=== PATIENT | male | born 1995 | race Caucasian/White ===

== ENCOUNTER 2017-09-08 12:32 | Emergency (ER) | payer OTHER ==
[~2017-09-08] VITALS: Ht 170.2 cm; Wt 39.9 kg
[2017-09-08 12:36] VITALS: BP 111/84
--- NOTE | 2017-09-08 12:58 | NUR ---
PATIENT PRESENTS TO ED WITH PT'S SHREDDER PICKER OF NEW FACILITY OF 2 DAYS AGO---WATERY STOOLS 1 EPISODE AND AGAIN THIS AM----ALSO FEVER ALTHOUGH CLEAN DIAPER AT THIS TIME AND AFEBRILE OF NOW DENIES N/V; SKIN IS PINK/WARM/DRY; AAOX4 WITH EVEN AND STEADY GAIT; LUNGS CLEAR BL; HR EVEN AND REGULAR; SHREDDER PICKER DENIES ANY CP, SOB, OR COUGH AT THIS TIME; PATIENT STATES PAIN OF 0/10 AT THIS TIME; VSS; PATIENT POSITIONED FOR COMFORT; HOB ELEVATED; BEDRAILS UP X2; BED DOWN. ER MD MADE AWARE OF PT STATUS.
[2017-09-08] MEDS ORDERED: ALBUTEROL SULFATE/IPRATROPIU 3 ML SOL IH ONE (13:35)
--- NOTE | 2017-09-08 14:02 | NUR ---
14FR STRIAGHT CATH INSERTED TO OBTAIN URINE SAMPLE STERILE SPECIMEN AND REMOVED IMMEDIATELY AFTER---- NOTED PT WITH SMALL AMOUNT SOFT BROWN STOOL IN DIAPER CLEANED WITH SOAPY WATER AND WASH CLOTHS
[2017-09-08] MEDS ORDERED: LACTULOSE 20 GM/30 ML UDC PO ONE (14:20)
[2017-09-08 14:24] LABS: APPEARANCE,URINE CLEAR (CLEAR); BILIRUBIN,URINE NEGATIVE (NEGATIVE); BLOOD, URINE NEGATIVE (NEGATIVE); COLOR,URINE YELLOW (YELLOW); LEUKOCYTE ESTERASE ,URINE NEGATIVE (NEGATIVE); NITRITE, URINE NEGATIVE (NEGATIVE); PH,URINE 6.5 (5.0-9.0); UGLUCOSE NEGATIVE (NEGATIVE)
--- NOTE | 2017-09-08 15:14 | NUR ---
Patient discharged with v/s stable. Written and verbal after care instructions given and explained. Patient alert, oriented and verbalized understanding of instructions. Wheel Chair Assisted with to car. All questions addressed prior to discharge. ID band removed. Patient advised to follow up with PMD. Rx of SENOKOT/ MAGENSIUM CITRATE LOW SODIUM given. Patient educated on indication of medication including possible reaction and side effects. Opportunity to ask questions provided and answered.
[2017-09-08 15:15] VITALS: BP 104/65
== END 2017-09-08 15:14 | disposition home or self-care (01) ==
LOC: MED 12:32
DX: R10.9 Unspecified abdominal pain (principal); R50.9 Fever, unspecified
CPT/HCPCS: 71045; 74018; 99285; C1758; Q0092

== ENCOUNTER 2017-09-29 20:28 | Inpatient (IN) | payer OTHER ==
[~2017-09-29] VITALS: Ht 162.6 cm; Wt 54.0 kg
--- NOTE | 2017-09-29 20:28 | NUR ---
PT ELADIO BLS TO ER BED 05
[2017-09-29 20:30] VITALS: BP 105/66
--- NOTE | 2017-09-29 20:30 | NUR ---
PATIENT IS A 22 Y/O MALE BIB BLS WHO PRESENTS TO THE ED C/O DIARRHEA. PER CARE PROFESSIONALS, PT HAD FEVER IN THE AM AND X5 EPISODES OF DIARRHEA. PT IN NO VISIBLE SIGNS OF PAIN. PT DOES NOT APPEAR TO BE IN SIGNS OF CP, SOB, CARE PROFESSIONALS REPORTS DIARRHEA DENIES NAUSEA/VOMITING. PT NONVERBAL, RR EVEN/UNLABORED. PT REPOSITIONED FOR COMFORT, SZ PRECAUTIONS, MONITOR ON, BED IN LOWEST POSITION. ER MD DR. FLANAGAN NOTIFIED. WILL CONTINUE TO MONITOR.
[2017-09-29] MEDS ORDERED: NACL 0.9% 500 ML IV ONE (20:40)
[2017-09-29] MEDS ORDERED: NACL 0.9% 500 ML IV SCH (20:40)
--- NOTE | 2017-09-29 21:30 | NUR ---
# 14 FR STRAIGHT catheter utilizing sterile technique. Immediate return of 30 ml CLEAR urine noted. Pt tolerated procedure WELL.
[2017-09-29 21:34] LABS: APPEARANCE,URINE CLEAR (CLEAR); BILIRUBIN,URINE NEGATIVE (NEGATIVE); BLOOD, URINE NEGATIVE (NEGATIVE); COLOR,URINE YELLOW (YELLOW); LEUKOCYTE ESTERASE ,URINE NEGATIVE (NEGATIVE); NITRITE, URINE NEGATIVE (NEGATIVE); PH,URINE 6.5 (5.0-9.0); UGLUCOSE NEGATIVE (NEGATIVE)
[2017-09-29 21:35] LABS: BASOPHILS % (AUTO) 0.5 % (0.0-2.0); EOSINOPHILS # (AUTO) 0.3 K/uL (0-0.4); EOSINOPHILS % (AUTO) 4.2 % (0.0-4.0); HEMATOCRIT 45.2 % (36-52); HEMOGLOBIN 14.8 g/dL (12.0-18.0); LYMPHOCYTES # (AUTO) 2.4 K/uL (2.0-11.5); LYMPHOCYTES % (AUTO) 34.5 % (20.5-51.1); MEAN CORPUSCULAR HEMOGLOBIN 29 pg (27-31); MEAN CORPUSCULAR HGB CONC 33 g/dL (33-37); MEAN CORPUSCULAR VOLUME 88.6 fL (80-94); MONOCYTES # (AUTO) 0.8 K/uL (0.8-1.0); MONOCYTES % (AUTO) 11.2 % (1.7-9.3); NEUTROPHILS # (AUTO) 3.4 K/uL (1.8-7.7); NEUTROPHILS % (AUTO) 49.6 % (42.2-75.2); PLATELET COUNT (AUTO) 215 K/uL (140-450); RED BLOOD CELL COUNT(AUTO) 5.11 MIL/uL (4.20-6.10); RED CELL DISTRIBUTION WIDTH 13.7 % (11.6-13.7); WHITE BLOOD COUNT (AUTO) 6.9 K/uL (4.5-11.0)
[2017-09-29 21:47] LABS: ANION GAP 14.3 (8-16); CARBON DIOXIDE 25.6 mmol/L (21-32); CREATININE 0.7 mg/dL (0.7-1.3); POTASSIUM 3.9 mmol/L (3.5-5.1)
[2017-09-29 21:52] LABS: ALBUMIN 3.4 g/dL (3.4-5.0); TOTAL BILIRUBIN 0.3 mg/dL (0.0-1.0)
[2017-09-29 21:57] LABS: PROTHROMBIN TIME 11.3 secs (10.8-13.4)
--- NOTE | 2017-09-29 22:05 | NUR ---
PATIENT TAKEN TO CT VIA ORENRLOU WITH TECH.
--- NOTE | 2017-09-29 22:15 | NUR ---
PATIENT RESTING AT THIS TIME. NO SIGNS OF DISTRESS.
[2017-09-29] MEDS ORDERED: MAGN400S60 PO (22:50)
[2017-09-29] MEDS ORDERED: ACET-2619 PO (22:50)
[2017-09-29] MEDS ORDERED: IBUP-2213 PO (22:50)
[2017-09-29] MEDS ORDERED: DOCU-299 PO (22:50)
[2017-09-29] MEDS ORDERED: MIRABULK PO (22:50)
[2017-09-30] MEDS ORDERED: ONDANSETRON 4 MG/2 ML VIAL IVP PRN (00:10)
[2017-09-30] MEDS ORDERED: MORPHINE SULFATE 4 MG/ML SYR IVP PRN (00:10)
[2017-09-30] MEDS ORDERED: ACETAMINOPHEN 325 MG TAB PO PRN (00:25)
--- NOTE | 2017-09-30 00:58 | NUR ---
Patient will be admitted to care of DR. MORENO. Admited to M/S. Will go to room 110A. Belongings list completed. Report to YURY GORDILLO.
[2017-09-30 01:05] VITALS: BP 85/56
--- NOTE | 2017-09-30 01:05 | NUR ---
ADMITTED A 22 YEAR OLD MALE TO 110A WITH DX OF BOWEL OBSTRUCTION, AWAKE ALERT BUT NON-VERBAL, PT IS CEREBRAL PALSY. APHASICABLE TO HEAR AND RESPOND TO VERBAL STIMULI PER ORTHOPHOTOGRAPHY TECHNICIAN. NO RESPIRATORY DISTRESS, O2 SAT 96% BP IS LOW BUT WILL CONTINUE TO MONITOR.
[2017-09-30] MEDS: DEXT 5% / NACL 0.45% 1,000 ML IV SCH ×4 (02:23→22:00)
--- NOTE | 2017-09-30 04:00 | NUR ---
V/S TAKEN BP 97/68 NO DISTRESS OR SEIZURE NOTED.
[2017-09-30 04:09] VITALS: BP 97/47
--- NOTE | 2017-09-30 06:00 | NUR ---
SLEEPING COMFORTABLY, NO DISTRESS NOTED.
--- NOTE | 2017-09-30 06:51 | NUR ---
PATIENT HAS BEEN SCREENED AND CATEGORIZED HIGH NUTRITION RISK. PATIENT WILL BE SEEN WITHIN 1-2 DAYS OF ADMISSION. 09/30/17-10/01/[address]
--- NOTE | 2017-09-30 07:20 | NUR ---
RECEIVED REPORT FROM LEGAL DOCUMENT SPECIALIST NURSE. PATIENT LYING DOWN IN BED COMFORTABLY. NO DISTRESS NOTED. FLACC 0. RESPIRATIONS EVEN, UNLABORED, ON ROOM AIR. AAOX1, APHASIC, CALM, COOPERATIVE, SKIN COLOR APPROPRIATE TO ETHNICITY, WARM TO TOUCH. SKIN IS INTACT. B/L UE AND LE CONTRACTURES AND MUSCLE ATROPHY NOTED. IV SITE INTACT, PATENT, AND INFUSING IVF PER MD ORDERS. ABDOMEN SOFT, BOWEL SOUNDS PRESENT ON ALL QUADRANTS. REVIEWED PLAN OF CARE WITH PATIENT. UNABLE TO COMPREHEND. REINFORCEMENT NEEDED. SAFETY MEASURES IN PLACE, CALL LIGHT WITHIN REACH. WILL CONTINUE TO MONITOR.
[2017-09-30 08:00] VITALS: BP 96/64
[2017-09-30] MEDS: DOCUSATE SODIUM 100 MG GELCAP PO SCH ×2 (09:00→20:53)
--- NOTE | 2017-09-30 09:26 | NUR ---
PATIENT LYING DOWN IN BED, NO DISTRESS NOTED. DENIES ANY PAIN. SCHEDULED MEDICATION NOT GIVEN DUE TO NPO. SAFETY MEASURES IN PLACE, CALL LIGHT WITHIN REACH, FALL PREVENTIONS IN PLACE. CALL LIGHT WITHIN REACH.
[2017-09-30] MEDS ORDERED: MORPHINE SULFATE 2 MG/ML SYR IVP PRN (09:47)
--- NOTE | 2017-09-30 10:03 | NUR ---
09/30/17 RD INITIAL ASSESSMENT COMPLETED PLEASE REFER TO NUTRITION ASSESSMENT UNDER CARE ACTIVITY FOR ESTIMATED NUTRITIONAL NEEDS. RD RECOMMENDATIONS: 1. CONTINUE NPO MEDICALLY APPROPRIATE. 2. IF/WHEN PT IS MEDICALLY STABLE TO BEGIN NUTRITION PER MD DISCRETION, CONSIDER CLEAR LIQUID AND ADVANCE TOLERATED. 3. IF PATIENT WILL NEED NUTRITION SUPPORT, PLEASE CONSULT RD FOR RECOMMENDATIONS. 4. RD WILL F/U 2-3 DAYS; HIGH RISK. CHACHA THAO RD
[2017-09-30] MEDS: FAMOTIDINE 20 MG/2 ML VIAL IV SCH (10:45)
[2017-09-30] MEDS: LEVOFLOXACIN 250 MG/D5 PREMIX 50 ML IV SCH (10:45)
--- NOTE | 2017-09-30 11:43 | NUR ---
PATIENT LYING DOWN IN BED, COMFORTABLY. NO DISTRESS NOTED. FLACC 0. OLD IV SITE INFILTRATED. NEW IV SITE STARTED ON RIGHT FA #22 GAUGE ON SECOND ATTEMPT. PATIENT TOLERATED WELL. SCHEDULED MEDICATIONS DUE GIVEN. SAFETY MEASURES IN PLACE, CALL LIGHT WITHIN REACH. WILL CONTINUE TO MONITOR.
[2017-09-30] MEDS: metroNIDAZOLE 500 MG/NS PREMIX 100 ML IV SCH ×2 (13:58→20:50)
--- NOTE | 2017-09-30 14:07 | NUR ---
PATIENT LYING DOWN IN BED COMFORTABLY. NO DISTRESS NOTED. FLACC 0. SCHEDULED MEDICATIONS DUE GIVEN. WILL CONTINUE TO MONITOR.
[2017-09-30 16:00] VITALS: BP 116/57
--- NOTE | 2017-09-30 17:30 | NUR ---
PATIENT LYING DOWN IN BED COMFORTABLY. NO DISTRESS NOTED. FLACC 0. CONDITION UNCHANGED. WILL CONTINUE TO MONITOR.
--- NOTE | 2017-09-30 19:27 | NUR ---
ENDORSED PLAN OF CARE TO DIE REPAIRER FORGING RN. PATIENT IS IN STABLE CONDITION.
--- NOTE | 2017-09-30 19:36 | NUR ---
RECEIVED FROM AM RN IN BED AWAKE. DX. SMALL BOWEL OBSTRUCTION. NPO WITH IVF SITE INTACT AND NO INFILTRATION TO RIGHT HAND 22. HX. OF CEREBRAL PALSY,SERVICE CLEANER SHUNT IN PLACE AND SEIZURES. SIDERAILS PADDED FOR SEIZURE PRECAUTION. CONTRACTED EXTREMITIES. APHASIC. NEEDS ANTICIPATED AND WILL BE MET.
--- NOTE | 2017-10-01 | NUR ---
AWAKE AND WATCHING TV. ENCOURAGED TO SLEEP. TOTAL CARE. NONE VERBAL. NO RESTLESSNESS. SMILING ALL THE TIME.
[2017-10-01 00:09] VITALS: BP 110/60
--- NOTE | 2017-10-01 03:13 | NUR ---
STILL AWAKE AT THIS TIME. WATCHING TV. NO RESTLESSNESS NOTED. NEEDS ANTICIPATED AND WILL BE MET.
[2017-10-01] MEDS: metroNIDAZOLE 500 MG/NS PREMIX 100 ML IV SCH ×3 (04:35→21:21)
[2017-10-01 06:34] LABS: BASOPHILS % (AUTO) 0.6 % (0.0-2.0); EOSINOPHILS # (AUTO) 0.2 K/uL (0-0.4); HEMATOCRIT 42.6 % (36-52); HEMOGLOBIN 14.1 g/dL (12.0-18.0); LYMPHOCYTES # (AUTO) 1.6 K/uL (2.0-11.5); LYMPHOCYTES % (AUTO) 28.5 % (20.5-51.1); MEAN CORPUSCULAR HEMOGLOBIN 30 pg (27-31); MEAN CORPUSCULAR HGB CONC 33 g/dL (33-37); MEAN CORPUSCULAR VOLUME 89.3 fL (80-94); MONOCYTES # (AUTO) 0.6 K/uL (0.8-1.0); MONOCYTES % (AUTO) 9.7 % (1.7-9.3); NEUTROPHILS # (AUTO) 3.3 K/uL (1.8-7.7); NEUTROPHILS % (AUTO) 57.2 % (42.2-75.2); PLATELET COUNT (AUTO) 163 K/uL (140-450); RED BLOOD CELL COUNT(AUTO) 4.78 MIL/uL (4.20-6.10); RED CELL DISTRIBUTION WIDTH 13.9 % (11.6-13.7); WHITE BLOOD COUNT (AUTO) 5.7 K/uL (4.5-11.0)
[2017-10-01 07:04] LABS: ALBUMIN 3.1 g/dL (3.4-5.0); ANION GAP 9.6 (8-16); CARBON DIOXIDE 22.9 mmol/L (21-32); CREATININE 0.6 mg/dL (0.7-1.3); MAGNESIUM 1.9 mg/dL (1.8-2.4); PHOSPHORUS 3.8 mg/dL (2.5-4.9); POTASSIUM 3.5 mmol/L (3.5-5.1); TOTAL BILIRUBIN 0.6 mg/dL (0.0-1.0)
--- NOTE | 2017-10-01 07:20 | NUR ---
RECEIVED PT FROM BRICK AND BLOCK MASON NURSE, NO SIGNS OF ACUTE DISTRESS.
--- NOTE | 2017-10-01 07:31 | NUR ---
ENDORSED TO THE NEXT RN FOR CONTINUITY OF CARE. NO UNTOWARD INCIDENT THIS SHIFT.
--- NOTE | 2017-10-01 07:32 | NUR ---
RECEIVED REPORT FROM MANUFACTURING MILLWRIGHT NURSE. PT IS RESTING IN BED, SEMI FOWLERS POSITION, PT IS AAOX1, APHASIC, WHEELCHAIR BOUND, PT HAS IV ON HIS RIGHT FA, PATENT, INTACT, FLUSHING WELL, NO S/S OF RESPIRATORY DISTRESS OR DISCOMFORT NOTED, DISCUSSED PLAN OF CARE WITH PT, PT UNABLE TO COMPREHEND, SAFETY/FALL/SEIZURE PRECAUTIONS ARE IN PLACE, CALL LIGHT IS WITHIN REACH, WILL CONTINUE TO MONITOR.
[2017-10-01 08:00] VITALS: BP 104/61
[2017-10-01] MEDS: DEXT 5% / NACL 0.45% 1,000 ML IV SCH ×3 (08:56→21:22)
[2017-10-01] MEDS: DOCUSATE SODIUM 100 MG GELCAP PO SCH ×2 (08:57→21:00)
--- NOTE | 2017-10-01 09:40 | NUR ---
PT RESTING IN BED, WAS CHANGED AND REPOSITIONED TO RIGHT SIDE, NO SIGNS OF ACUTE DISTRESS. CAREGIVER ARIANNA CALLED ASKING FOR UPDATE ON PLAN OF CARE. PLAN OF CARE EXPLAINED AND QUESTIONS ANSWERED. HAND MOLDER AND CASTER STATED SHE WILL COME TO VISIT LATER TODAY IF SHE CAN. PT IS STABLE AT THIS TIME, COMFORTABLE AND WATCHING TV.
[2017-10-01] MEDS: LEVOFLOXACIN 250 MG/D5 PREMIX 50 ML IV SCH (10:07)
[2017-10-01] MEDS: FAMOTIDINE 20 MG/2 ML VIAL IV SCH (10:07)
--- NOTE | 2017-10-01 11:20 | NUR ---
ENSURING FREQ ROUNDS FOR PT SAFETY, PT IS STABLE, WATCHING TV IN BED, CALL LIGHT WITHIN REACH.
--- NOTE | 2017-10-01 14:00 | NUR ---
IV ON RIGHT ARM D/C, CATH IN TACK. D.C DUE TO INFILTRATION. NEW IV STARTED ON UPPER RIGHT ARM, 22 GAUGE, PATIENT, AND SECURED.
--- NOTE | 2017-10-01 15:30 | NUR ---
OLDER SISTER AT BEDSIDE, PLAN OF CARE REVIEWED AND QUESTIONS ANSWERED, ASKED TO CALL JENNIFER WHEN MONSERRAT CARDOZA COMES TO VISIT. PT IN NO DISTRESS, CALL LIGHT WITHIN REACH.
[2017-10-01 16:00] VITALS: BP 103/55
--- NOTE | 2017-10-01 17:30 | NUR ---
PT RESTING IN BED, IV FLUIDS INFUSING, NO SIGNS OF DISTRESS, WILL CONTINUE FREQ ROUNDS.
--- NOTE | 2017-10-01 19:25 | NUR ---
ENDORSED PT TO DRAW OPERATOR NURSE WILL CONTINUE PLAN OF CARE, PT STABLE AT THIS TIME
--- NOTE | 2017-10-01 19:25 | NUR ---
RECEIVED FROM AM RN IN BED AWAKE AND ALERT. WATCHING TV. SMILING. NONE VERBAL. NEEDS WILL BE ANTICIPATED AND WILL BE MET. TOTAL CARE. PADDED SIDERAILS FOR SEIZURE PRECAUTIONS HX. CEREBRAL PALSY.
[2017-10-01] MEDS: POLYETHYLENE GLYCOL 17 GM/PKT PO SCH (21:00)
--- NOTE | 2017-10-01 22:30 | NUR ---
PT. STILL AWAKE . FLACC O-. KEPT COMFORTABLE. NPO . PT. NEEDS ANTICIPATED AND WILL BE MET. HX. CEREBRAL PALSY. SMILING MOST OF TIMES.
[2017-10-02 00:43] VITALS: BP 108/64
--- NOTE | 2017-10-02 00:45 | NUR ---
PT. AWAKE STILL AND WATCHING TV. TURNED TO SIDES WITH PILLOW SUPPORT TO PRESSURE AREAS. NEEDS ANTICIPATED AND MET. TOTAL CARE.
--- NOTE | 2017-10-02 02:53 | NUR ---
SLEEPING. FLACC 0-NEEDS ANTICIPATED AND WILL BE MET. TURNED TO SIDES Q 2H WITH PILLOW SUPPORT TO PRESSURE AREAS.
[2017-10-02] MEDS: metroNIDAZOLE 500 MG/NS PREMIX 100 ML IV SCH ×2 (05:37→12:45)
--- NOTE | 2017-10-02 06:49 | NUR ---
PT. AWAKE AND ALERT. LAB. CASE MANAGEMENT COORDINATOR IN HERE TO DRAW BLOOD SAMPLE. NO SOB. TOTAL CARE RT CEREBRAL PALSY HX. NEEDS ANTICIPATED AND MET. IVF SITE INTACT AND NO INFILTRATION.
[2017-10-02 07:16] LABS: BASOPHILS % (AUTO) 0.5 % (0.0-2.0); EOSINOPHILS # (AUTO) 0.3 K/uL (0-0.4); EOSINOPHILS % (AUTO) 4.4 % (0.0-4.0); HEMATOCRIT 43.2 % (36-52); HEMOGLOBIN 14.4 g/dL (12.0-18.0); LYMPHOCYTES # (AUTO) 1.2 K/uL (2.0-11.5); LYMPHOCYTES % (AUTO) 18.2 % (20.5-51.1); MEAN CORPUSCULAR HEMOGLOBIN 30 pg (27-31); MEAN CORPUSCULAR HGB CONC 33 g/dL (33-37); MEAN CORPUSCULAR VOLUME 89.2 fL (80-94); MONOCYTES # (AUTO) 0.8 K/uL (0.8-1.0); MONOCYTES % (AUTO) 12.1 % (1.7-9.3); NEUTROPHILS # (AUTO) 4.1 K/uL (1.8-7.7); NEUTROPHILS % (AUTO) 64.8 % (42.2-75.2); PLATELET COUNT (AUTO) 167 K/uL (140-450); RED BLOOD CELL COUNT(AUTO) 4.85 MIL/uL (4.20-6.10); RED CELL DISTRIBUTION WIDTH 13.9 % (11.6-13.7); WHITE BLOOD COUNT (AUTO) 6.4 K/uL (4.5-11.0)
--- NOTE | 2017-10-02 07:30 | NUR ---
RECEIVED REPORT FROM NIGHT RN AT PT BEDSIDE. PATIENT ALERT TO SELF. ABLE TO FOLLOW SIMPLE COMMANDS. APHASIC. NO S/S OF ACUTE DISTRESS NOTED. PATIENT CONTRACTED BLE, LUE. IV SITE PATENT AND INTACT.
--- NOTE | 2017-10-02 07:34 | NUR ---
PT. AWAKE. ENDORSED TO THE NEXT RN FOR CONTINUITY OF CARE. HX. CEREBRAL PALSY. NO COMPLAINTS DONE. NEEDS ANTICIPATED AND MET.TOTAL CARE.NON VERBAL.
[2017-10-02 07:57] LABS: CARBON DIOXIDE 25.9 mmol/L (21-32); CREATININE 0.7 mg/dL (0.7-1.3); POTASSIUM 3.9 mmol/L (3.5-5.1)
[2017-10-02 08:00] VITALS: BP 94/65
[2017-10-02] MEDS: DOCUSATE SODIUM 100 MG GELCAP PO SCH ×2 (09:39→22:04)
[2017-10-02] MEDS: POLYETHYLENE GLYCOL 17 GM/PKT PO SCH ×3 (09:39→22:04)
[2017-10-02] MEDS: FAMOTIDINE 20 MG/2 ML VIAL IV SCH (09:40)
[2017-10-02] MEDS: LEVOFLOXACIN 250 MG/D5 PREMIX 50 ML IV SCH (09:42)
--- NOTE | 2017-10-02 11:14 | NUR ---
PATIENT SEEN BY PATIENT'S RESIDENT CARE ASSOCIATE AT BEDSIDE. MADE AWARE OF CURRENT PLAN OF CARE REGARDING DISCHARGE PLANNING. ALL NEEDS MET. PT RESTING IN BED.
--- NOTE | 2017-10-02 12:11 | NUR ---
FAXED INITIAL REVIEW TO [facility] [phone] DAMIAN [phone]
--- NOTE | 2017-10-02 12:36 | NUR ---
PATIENT SEEN BY DR. Robby BARROSO AT PT BEDSIDE. MD SPOKE WITH PATIENT'S AUNT ON PHONE REGARDING H&P. CONTINUE WITH CURRENT PLAN OF CARE, NEW ORDERS RECEIVED FOR ADDED MEDICATIONS.
[2017-10-02] MEDS ORDERED: MINERAL OIL 135 ML ENEM RC SCH ×2 (12:45→21:00)
[2017-10-02] MEDS: DEXT 5% / NACL 0.45% 1,000 ML IV SCH (12:49)
--- NOTE | 2017-10-02 14:08 | NUR ---
FLEET ENEMA MINERAL OIL ADMINISTERED, TO FOLLOW.
[2017-10-02] MEDS ORDERED: MAGNESIUM CITRATE 300 ML BTL PO SCH (14:10)
[2017-10-02 16:00] VITALS: BP 105/71
[2017-10-02] MEDS: SENNA 8.6 MG TAB PO SCH (16:06)
--- NOTE | 2017-10-02 19:20 | NUR ---
SBAR REPORT GIVEN TO DUY AVERY AT PT BEDSIDE. NO S/S OF ACUTE DISTRESS NOTED. PATIENT CONTINUES TO BE CONSTIPATED. SECOND DOSE FLEET ENEMA ADMINISTERED ORDERED, FIRST DOSE EXPELLED WITH NO STOOL.
[2017-10-02 20:25] VITALS: BP 109/70
[2017-10-02] MEDS: LACTULOSE 20 GM/30 ML UDC PO SCH (22:04)
[2017-10-03 00:48] VITALS: BP 109/75
[2017-10-03] MEDS: DEXT 5% / NACL 0.45% 1,000 ML IV SCH ×2 (00:58→10:00)
--- NOTE | 2017-10-03 07:36 | NUR ---
Pt had 2 large loose BMS. Latter stool slightly pasty. Spoke witj pt Aunt Mahnaz and update on patient status. IVF infusing and patent. Safety precautions in use. No s/s of distress noted. Handoff given to oncoming DUY Randle and Polina.
--- NOTE | 2017-10-03 07:38 | NUR ---
RECEIVED REPORT FROM PHP DEVELOPER NURSE. PATIENT IS IN STABLE CONDITION. LUNG CTA IN ALL WHITTAKER. HEART RATE REGULAR, S1 AND S2 NOTED. BOWEL SOUNDS PRESENT IN ALL QUADRANTS. NO DISTRESS NOTED. ALL SAFETY MEASURES IN PLACE, CALL LIGHT WITHIN REACH. WILL CONTINUE TO MONITOR.
[2017-10-03 08:00] VITALS: BP 91/51
[2017-10-03] MEDS: DOCUSATE SODIUM 100 MG GELCAP PO SCH (09:48)
[2017-10-03] MEDS: SENNA 8.6 MG TAB PO SCH ×2 (09:49→13:34)
[2017-10-03] MEDS: LACTULOSE 20 GM/30 ML UDC PO SCH (09:49)
[2017-10-03] MEDS: POLYETHYLENE GLYCOL 17 GM/PKT PO SCH ×2 (09:51→13:33)
[2017-10-03] MEDS ORDERED: LACT10SO11 PO (09:53)
[2017-10-03] MEDS ORDERED: SENN-89 PO (09:53)
[2017-10-03] MEDS: FAMOTIDINE 20 MG/2 ML VIAL IV SCH (10:07)
--- NOTE | 2017-10-03 10:33 | NUR ---
PATIENT RESTING IN BED, AROUSABLE BY VOICE. RIGHT UPPER ARM IV REMOVED WITH MINIMAL BLOOD LOSS AND LUMEN COMPLETELY INTACT. NO SIGNS AND SYMPTOMS OF DISTRESS. WILL CONTINUE TO MONITOR.
--- NOTE | 2017-10-03 12:10 | NUR ---
PATIENT RESTING IN BED, WATCHING TV. NO SIGNS AND SYMPTOMS OF DISTRESS. ALL SAFETY MEASURES IN PLACE, CALL LIGHT WITHIN REACH. WILL CONTINUE TO MONITOR.
--- NOTE | 2017-10-03 13:00 | NUR ---
ASSISTED PATIENT WITH LUNCH FEEDING. PATIENT TOLERATED REGULAR DIET WELL. NO S/S OF DISTRESS NOTED
--- NOTE | 2017-10-03 14:15 | NUR ---
PATIENT HAD A BM. PERINEAL CARE GIVEN
--- NOTE | 2017-10-03 14:20 | NUR ---
PATIENT LYING IN BED WITH CAREGIVER AT BEDSIDE. PATIENT IS IN STABLE CONDITION. DISCHARGE INSTRUCTIONS AND FOLLOW UP WITH PRIMARY CARE PHYSICIAN INSTRUCTIONS COMMUNICATED WITH PATIENT AND CAREGIVER. NEW PRESCRIPTIONS GIVEN TO CAREGIVER. CAREGIVER VERBALIZED UNDERSTANDING OF ALL DISCHARGE INSTRUCTIONS. IV REMOVED WITH MINIMAL BLOOD LOSS AND LUMEN COMPLETELY INTACT. PATIENT IS NOT IN ANY DISTRESS. PATIENT AND CAREGIVER LEFT WITH ALL OF PATIENT'S PERSONAL BELONGINGS.
--- NOTE | 2017-10-03 14:36 | NUR ---
CONCURRENT REVIEW FAXED TO [facility] [phone]
== END 2017-10-03 14:20 | disposition home or self-care (01) | DRG 254 ==
LOC: MED 20:28 → MTU 09-30 00:06
PROVIDERS: ADMIT Hospitalist; ATTEND Hospitalist
DX: K62.89 Other specified diseases of anus and rectum (principal); K56.7 Ileus, unspecified; K59.09 Other constipation; G40.909 Epilepsy, unspecified, not intractable, without status epilepticus; G80.9 Cerebral palsy, unspecified; F79 Unspecified intellectual disabilities; K46.9 Unspecified abdominal hernia without obstruction or gangrene
CPT/HCPCS: 36415; 71045; 74018; 80048; 80053; 81003; 83605; 83735; 84100; 85025; 85610; 85730; 87040; 87081; 87086; 93005; 96360; 96361; 99285; C1758; J1956; J3490; J7030; Q0092

== ENCOUNTER 2019-10-17 11:39 | Inpatient (IN) | payer MEDICAID, SELFPAY ==
[~2019-10-17] VITALS: Ht 154.9 cm; Wt 56.7 kg
[~2019-10-17 11:39] MED LIST: ACET-2619 PO; DOCU-299 PO; IBUP-2213 PO; LACT10SO11 PO; MAGN400S60 PO; MIRABULK PO; SENN-74 PO
[2019-10-17 11:46] VITALS: BP 111/66
--- NOTE | 2019-10-17 11:50 | NUR ---
PT BIB EPITAXIAL REACTOR OPERATOR FROM [facility] C/O FEVER 100.5 X YERTERDAY. TYLENOL WAS GIVEN AROUND 6:30 AM THIS MORNING BY CAREGIVER. PER CAREGIVER, PT HAS BEEN MORE DROWSY THAN USUAL BUT DENIES HE HAS ANY FEVER, CP, SOB, COUGH, N/V/D AT THIS TIME; PATIENT'S PAIN IS 0/10 ON FLACC SCALE AT THIS TIME; VSS; DISTENDED ABDOMEN BUT NO TENDERNESS OR REBOUND TENDERNESS ON PALPATION. PATIENT POSITIONED FOR COMFORT; HOB ELEVATED; BEDRAILS UP X2; BED DOWN. ER MD MADE AWARE OF PT STATUS.
--- NOTE | 2019-10-17 12:50 | NUR ---
COVID SWAB OBTAINED AT BEDSIDE AND SENT TO THE LAB.
[2019-10-17 12:51] LABS: BASOPHILS % (AUTO) 0.1 % (0.0-2.0); HEMATOCRIT 47.1 % (36-52); HEMOGLOBIN 15.8 g/dL (12.0-18.0); LYMPHOCYTES # (AUTO) 0.6 K/uL (2.0-11.5); LYMPHOCYTES % (AUTO) 14.4 % (20.5-51.1); MEAN CORPUSCULAR HEMOGLOBIN 30 pg (27-31); MEAN CORPUSCULAR HGB CONC 34 g/dL (33-37); MONOCYTES # (AUTO) 0.6 K/uL (0.8-1.0); MONOCYTES % (AUTO) 13.9 % (1.7-9.3); NEUTROPHILS % (AUTO) 70.6 % (42.2-75.2); PLATELET COUNT (AUTO) 141 K/uL (140-450); RED BLOOD CELL COUNT(AUTO) 5.23 MIL/uL (4.20-6.10); RED CELL DISTRIBUTION WIDTH 12.8 % (11.6-13.7); WHITE BLOOD COUNT (AUTO) 4.3 K/uL (4.8-10.8)
[2019-10-17 12:52] LABS: ALBUMIN 3.6 g/dL (3.4-5.0); ANION GAP 16.1 (8-16); CARBON DIOXIDE 25.5 mmol/L (21-32); CREATININE 0.8 mg/dL (0.6-1.3); POTASSIUM 3.6 mmol/L (3.5-5.1); TOTAL BILIRUBIN 0.3 mg/dL (0.0-1.0)
--- NOTE | 2019-10-17 13:08 | NUR ---
PT HAS BEEN TAKEN TO CT SCAN BY PO.
[2019-10-17 13:29] LABS: APPEARANCE,URINE CLEAR (CLEAR); BILIRUBIN,URINE NEGATIVE (NEGATIVE); BLOOD, URINE NEGATIVE (NEGATIVE); COLOR,URINE YELLOW (YELLOW); LEUKOCYTE ESTERASE ,URINE NEGATIVE (NEGATIVE); NITRITE, URINE NEGATIVE (NEGATIVE); UGLUCOSE NEGATIVE (NEGATIVE)
--- NOTE | 2019-10-17 14:00 | NUR ---
PT IS RESTING IN THE BED. CAREGIVER IS AT BEDSIDE.
[2019-10-17] MEDS ORDERED: NACL 0.9% 1,000 ML IV ONE (14:30)
[2019-10-17] MEDS ORDERED: ACETAMINOPHEN 325 MG TAB PO PRN (14:30)
[2019-10-17] MEDS ORDERED: DOCUSATE SODIUM 100 MG GELCAP PO PRN (14:30)
[2019-10-17] MEDS ORDERED: ONDANSETRON 4 MG/2 ML VIAL IM/IVP PRN (14:30)
[2019-10-17] MEDS ORDERED: HYDROcodone/APAP 7.5/325 MG 1 TAB PO PRN (14:30)
[2019-10-17] MEDS ORDERED: LACT10SO1 PO (14:33)
[2019-10-17] MEDS ORDERED: BACI1OIN20 TP (14:37)
[2019-10-17] MEDS ORDERED: [UNRECOGNIZED DRUG - CODE] PO (14:37)
[2019-10-17] MEDS ORDERED: MAGN400S60 PO (14:37)
[2019-10-17] MEDS ORDERED: cefTRIAXone 1,000 MG VIAL ONE (14:39)
--- NOTE | 2019-10-17 15:00 | NUR ---
Patient will be admitted to care of FEVER, R/O COVID. Admited to MED-SURG. Will go to room 113. Belongings list completed. Report to DUY PEARL.
[2019-10-17 15:05] LABS: BARBITURATE, URINE NEGATIVE ng/ml (NEG <=200); BENZODIAZEPINE, URINE NEGATIVE ng/mL (NEG <=200); CANNABINOID, URINE NEGATIVE ng/mL (NEG <=50); COCAINE, URINE NEGATIVE ng/mL (NEG <=300); OPIATE, URINE NEGATIVE ng/mL (NEG <=2000); PHENCYCLIDINE SCREEN,URINE NEGATIVE ng/mL (NEG <=25)
--- NOTE | 2019-10-17 15:15 | NUR ---
RECEIVED PATIENT FROM ED NURSE FOR CONTINUITY OF CARE. INITIAL ASSESSMENT: PATIENT IS AWAKE. HX OF CEREBRAL PALSY, AV SHUNT, SEIZURE. RESPIRATIONS EVEN AND UNLABORED, ROOM AIR. CLEAR LUNGS SOUNDS THROUGHOUT. VISIBLE CHEST RISE AND FALL NOTED. ABDOMEN SOFT AND NONTENDER. SKIN WARM, DRY, AND INTACT. IV IN THE RIGHT FOREARM G20, RUNNING ROCEPHIN FROM ED. WHEELCHAIR BOUND. FALL PRECAUTION. BED ALARM ACTIVATED. BED IN LOW POSITION. CALL LIGHT IS WITHIN REACH. WILL CONTINUE TO MONITOR.
[2019-10-17 15:22] LABS: CHOL/HDL RATIO 2.5 (1-4.5); FREE T4 (FREE THYROXINE) 1.12 ng/dL (0.76-1.46); PHOSPHORUS 3.7 mg/dL (2.5-4.9); THYROID STIMULATING HORMONE 0.71 uIU/mL (0.34-3.74)
--- NOTE | 2019-10-17 15:22 | NUR ---
MRSA NARES SWAB COLLECTED. VITAL SIGNS: BP 127/64, HR 52, T: 99.5, TEMPORAL SCAN, O2SAT 98% ROOM AIR. RESPIRATIONS 16, UNLABORED. FLACC 0. WILL CONTINUE TO MONITOR.
[2019-10-17] MEDS: NACL 0.9% 1,000 ML IV SCH (15:26)
--- NOTE | 2019-10-17 15:26 | NUR ---
HUNG NS AT 60 ML/HR.
[2019-10-17 16:00] VITALS: BP 127/64
--- NOTE | 2019-10-17 16:17 | NUR ---
PATIENT'S CONTACT INFORMATION: 1. RN - GIANCARLO RODRÍGUEZ - [phone] 2. ADMIN AT SKILLED NURSING: GENEVIEVE PEREZ (CALL HER FIRST) = [phone] 3. FIRE SUPERVISOR: TENA MAGAÑA (CALL HER IF GENEVIEVE IS NOT AVAILABLE) = [phone] 4. FOR AUTHORIZATION - MEET MIMS = [phone]. IF CONSENT IS NEEDED, CALL GENEVIEVE FIRST.
--- NOTE | 2019-10-17 16:33 | NUR ---
FIXED TELE MONITOR. RECHECKED TEMPERATURE: 99.7, TEMPORAL. WILL CONTINUE TO MONITOR
--- NOTE | 2019-10-17 16:48 | NUR ---
INFORMED DR. ROME ABOUT PATIENT'S DIET. DR. ROME STATED HE WILL PUT IT IN.
[2019-10-17] MEDS ORDERED: SODIUM PHOSPHATE 118 ML ENEM RC PRN (16:55)
[2019-10-17] MEDS: BISACODYL 10 MG SUPP RC SCH ×2 (16:57→17:04)
[2019-10-17] MEDS: POLYETHYLENE GLYCOL 17 GM/PKT PO SCH (17:04)
--- NOTE | 2019-10-17 17:04 | NUR ---
GIVEN BISACODYL SUPP. MIRALAX MIXED WITH THICKENED WATER. PATIENT TOLERATED WELL. PRESCHOOL PRINCIPAL AT BEDSIDE CLEANING PATIENT.
--- NOTE | 2019-10-17 17:33 | NUR ---
NEUTROPENIC PRECAUTION IN PLACE
--- NOTE | 2019-10-17 19:00 | NUR ---
RECEIVED BEDSIDE REPORT FROM DAY SHIFT NURSE. PLAN WAS DISCUSSED. PT IS AWAKE AND ALERT X1 IN SEMI FOWLERS POSITION IN BED. RESPIRATIONS ARE EVEN AND UNLABORED. CHEST RISE IS SYMMETRICAL. IV IS PATENT AND INTACT RUNNING NORMAL SALINE. SKIN IS INTACT, COOL, AND DRY. PT IS CONTRACTED AND MENTALLY DELAYED. BED IS LOWEST POSITION AND CALL LIGHT IS IN REACH. WILL CONTINUE TO MONITOR.
--- NOTE | 2019-10-17 19:25 | NUR ---
ENDORSED PATIENT TO THE SSIS SSRS DEVELOPER NURSE FOR CONTINUITY OF CARE. PATIENT IS IN STABLE CONDITION.
[2019-10-17 20:00] VITALS: BP 121/74
[2019-10-17] MEDS: LACTULOSE 20 GM/30 ML UDC PO SCH (21:32)
--- NOTE | 2019-10-17 22:00 | NUR ---
PT HAD A BIG BOWEL MOVEMENT. THE PT WAS CLEANED AND LINENS WERE CHANGED. PT IS SINUS RHYTHM ON TELE MONITORING.
[2019-10-18] VITALS: BP 102/71
--- NOTE | 2019-10-18 | NUR ---
PT IS CLEANED AND CHANGED AFTER VOIDING. ON TELE SINUS RHYTHM. NO SIGNS OF DISTRESS. PT WAS PROVIDED ANOTHER SHEET FOR COMFORT.
--- NOTE | 2019-10-18 02:00 | NUR ---
PT IS LAYING IN BED, A&O X 1. THERE ARE NO APPARENT SIGNS OF DISTRESS. PT WAS SWABBED FOR INFLUENZA A AND B IN THE NARES. EDUCATION WAS PROVIDED FOR THE PROCEDURE. PT TOLERATED THE PROCEDURE WELL. IV IS PATENT, INTACT AND RUNNING NORMAL SALINE. WILL CONTINUE TO MONITOR.
[2019-10-18] MEDS: NACL 0.9% 1,000 ML IV SCH ×3 (02:24→23:44)
[2019-10-18 04:00] VITALS: BP 102/50
--- NOTE | 2019-10-18 04:00 | NUR ---
PT IS AWAKE AND LAYING IN BED. SOILED LINENS WERE CHANGED AND PT WAS REPOSITIONED. NO SOB OR SIGNS OF DISTRESS.
--- NOTE | 2019-10-18 06:00 | NUR ---
PT IS SLEEPING AND IS STABLE. RESPIRATIONS ARE EVEN AND UNLABORED. CHEST RISE IS SYMMETRICAL. IV IS RUNNING AND PATENT. WILL CONTINUE TO MONITOR.
--- NOTE | 2019-10-18 06:54 | NUR ---
PT DIDN'T HAVE A FEVER ON OUR SHIFT. PT IS SHOWING NO SIGNS OF DISTRESS AND IS STABLE. PT WILL BE ENDORSED TO THE DAY SHIFT NURSE FOR CONTINUITY OF CARE.
--- NOTE | 2019-10-18 07:05 | NUR ---
RECEIVED BEDSIDE REPORT FROM DIAGRAMMER AND SEAMER RN, SHEMAR, FOR CONTINUITY OF CARE. PT. IS AWAKE AND IN BED, NO SIGNS OF DISTRESS NOTED. RESPIRATIONS ARE EVEN AND UNLABORED ON RA. CHEST RISE IS SYMMETRICAL. IV ON THE RAC 20G IS PATENT AND INTACT RUNNING NORMAL SALINE AT 60ML/HR. SKIN IS INTACT, COOL, AND DRY. PT IS CONTRACTED AND MENTALLY DELAYED. POC IS DISCUSSED. BED IS LOWEST POSITION AND CALL LIGHT IS IN REACH. DROPLET ISOLATION IN PLACE. SEIZURE, NEUTROPENIC, AND FALL PRECAUTIONS IN PLACE. WILL CONTINUE TO MONITOR.
[2019-10-18 08:00] VITALS: BP 119/86
[2019-10-18 08:07] LABS: T4 (THYROXINE) 6.1 ug/dL (4.5-12.0)
[2019-10-18] MEDS: POLYETHYLENE GLYCOL 17 GM/PKT PO SCH ×2 (08:28→16:16)
[2019-10-18] MEDS: BISACODYL 10 MG SUPP RC SCH (08:28)
[2019-10-18] MEDS: LACTULOSE 20 GM/30 ML UDC PO SCH ×2 (08:28→23:22)
--- NOTE | 2019-10-18 08:30 | NUR ---
MORNING MEDICATIONS GIVEN. V/S TAKEN AND WNL. NO SIGNS OF DISTRESS NOTED. WILL CONTINUE TO MONITOR.
--- NOTE | 2019-10-18 08:40 | NUR ---
MORNING MEDICATIONS GIVEN. NO SIGNS OF DISTRESS NOTED. V/S WNL. BREAKFAST IS GIVEN TO PT. WILL CONTINUE TO MONITOR.
--- NOTE | 2019-10-18 08:45 | NUR ---
PT. IS CHANGED, CLEANED AND TURNED. NO SIGNS OF DISTRESS NOTED. WILL CONTINUE TO MONITOR.
--- NOTE | 2019-10-18 09:26 | NUR ---
PATIENT HAS BEEN SCREENED AND CATEGORIZED HIGH NUTRITION RISK. PATIENT WILL BE SEEN WITHIN 1-2 DAYS OF ADMISSION. 10/18/19-10/19/[address]
--- NOTE | 2019-10-18 11:01 | NUR ---
DC PLANN[age] YRS OLD MALE PATIENT WAS ADMITTED FROM [facility] WITH A DX OF FEVER AND R/O COVID. PT HAS A HX OF CEREBRAL PALSY, SEIZURE AND MANAGER COMPETITIVE INTELLIGENCE SHUNT. CXR SHOWED NO CARDIOPULMONARY DISEASE. CT ABD MODERATE AMOUNT OF IMPACTED STOOL . BLOOD AND URINE CULTURE PENDING. INFLUENZA A&B NEGATIVE COVID-19 TEST PENDING. STARTED ON IVF, IV ABX ROCEPHIN AND CONTINUE HOME MEDS. DC PLAN TO GO BACK TO [facility]. CM TO FOLLOW Addendum: 10/21/19 at 1012 by Nilesh MUNOZ FERNIE CONTACTED IESHA KRISHNA [phone], CAREGIVER OF [facility]. PER IESHA, PATIENT WOULD BE ACCEPTED BACK TO [facility] WITH PATIENT BEING COVID POSITIVE. IESHA STATED SHE WOULD CONSULT WITH HER ACID MAKER TO SEE IF TRANSPORTATION CAN BE ARRANGED 10/21/2019. IESHA STATED THAT TRANSPORTATION WOULD BE COORDINATED 10/22/2019 AT LATEST. IESHA STATED SHE WOULD CONTACT FERNIE AFTER SHE SPEAKS TO HER ACID MAKER. FERNIE WILL FOLLOW UP.
--- NOTE | 2019-10-18 11:16 | NUR ---
HEEL BRUSHER NOTE: Information Provided By IESHA KRISHNA Lamp Replacer, Realtionship and Phone Number IESHA WOOTENT CAREGIVER [phone] MEET [facility] [place] [facility] SPECIAL EDUCATION TEACHER [phone] Healthcare Power of Manager Utilization No Does Patient Have a POLST No Identifying Problems No Social Work Triggers Is A Social Work Consult Needed No Mandate Report Filed No Explanation Of Identifying Problems PATIENT IS A 24-YEAR-OLD MALE ADMITTED FOR FEVER AND COVID R/O. PATIENT HAS PMHX OF CEREBRAL PALSY, SEIZURES, AND DECUBITUS ULCER. PATIENT IS NON-VERBAL AND HAS NO CONSERVATOR OR FAMILY INVOLVED IN CARE. PATIENT'S IRC WORKER, MEET [facility] ASSISTS WITH MEDICAL DECISION MAKING. Admitted From [facility] Pre-Admission Level Of Functioning Status Total Care Prior Resources/Services Used In Last 12 Months [facility]ly [facility] Prior DME Wheelchair Financial Issues No Known Financial Issue Factors/Needs No D/C Needs Identified Pt/Rep Participated In Discharge Plan Yes Discharge Plan Comments TENTATIVE DISCHARGE PLAN IS FOR PATIENT TO RETURN TO [facility].
[2019-10-18 12:00] VITALS: BP 89/60
[2019-10-18 12:25] LABS: BASOPHILS % (AUTO) 1.3 % (0.0-2.0); EOSINOPHILS % (AUTO) 0.8 % (0.0-4.0); HEMATOCRIT 48.8 % (36-52); HEMOGLOBIN 16.3 g/dL (12.0-18.0); LYMPHOCYTES # (AUTO) 1.1 K/uL (2.0-11.5); LYMPHOCYTES % (AUTO) 28.5 % (20.5-51.1); MEAN CORPUSCULAR HEMOGLOBIN 30 pg (27-31); MEAN CORPUSCULAR HGB CONC 34 g/dL (33-37); MEAN CORPUSCULAR VOLUME 89.4 fL (80-94); MONOCYTES # (AUTO) 0.5 K/uL (0.8-1.0); MONOCYTES % (AUTO) 12.8 % (1.7-9.3); NEUTROPHILS # (AUTO) 2.2 K/uL (1.8-7.7); NEUTROPHILS % (AUTO) 56.6 % (42.2-75.2); PLATELET COUNT (AUTO) 129 K/uL (140-450); RED BLOOD CELL COUNT(AUTO) 5.45 MIL/uL (4.20-6.10); RED CELL DISTRIBUTION WIDTH 12.6 % (11.6-13.7); WHITE BLOOD COUNT (AUTO) 3.9 K/uL (4.8-10.8)
[2019-10-18 12:47] LABS: ANION GAP 13.5 (8-16); CARBON DIOXIDE 24.6 mmol/L (21-32); CREATININE 0.9 mg/dL (0.6-1.3); POTASSIUM 4.1 mmol/L (3.5-5.1)
--- NOTE | 2019-10-18 13:00 | NUR ---
AFTERNOON MEDICATIONS GIVEN. NO SIGNS OF DISTRESS NOTED. WILL CONTINUE TO MONITOR.
--- NOTE | 2019-10-18 13:30 | NUR ---
PT. IS TURNED, CLEANED, AND CHANGED. NO SIGNS OF DISTRESS NOTED. FLACC-0. WILL CONTINUE TO MONITOR.
--- NOTE | 2019-10-18 14:52 | NUR ---
10/18/19 RD INITIAL ASSESSMENT COMPLETED PLEASE REFER TO NUTRITION ASSESSMENT UNDER CARE ACTIVITY FOR ESTIMATED NUTRITIONAL NEEDS. 1. CONTINUE PUREE DIET TOLERATED 2. CONTINUE ENSURE TID TOLERATED 3. RECOMMEND SWALLOW EVALUATION IF PATIENT IS UNABLE TO TOLERATE PO DIET 4. RD TO FOLLOW-UP 2-3 DAYS, HIGH RISK RONNY SUAREZ RD
[2019-10-18 16:00] VITALS: BP 114/93
--- NOTE | 2019-10-18 17:00 | NUR ---
PT. IS CHANGED, CLEANED, AND TURNED. NO SIGNS OF DISTRESS NOTED. WILL CONTINUE TO MONITOR.
--- NOTE | 2019-10-18 18:05 | NUR ---
RECEIVED CALL FROM SNEHA BRODY, ABOUT COVID-19 POSITIVE. REPORTED TO MD. MD WILL PLACE ORDERS. WILL CONTINUE TO MONITOR.
--- NOTE | 2019-10-18 19:09 | NUR ---
RECEIVED BEDSIDE SHIFT REPORT FROM [facility] NURSE GEENA FOR CONTINUITY OF CARE. PATIENT AWAKE IN BED NO SIGNS OF DISTRESS NOTED. RESPIRATIONS EVEN AND UNLABORED ON RA. SPO2 AT 98%. IV PATENT AND INFUSING WITHOUT DIFFICULTY TELE MONITOR ATTACHED AND CALL LIGHT WITHIN REACH. WILL CONTINUE TO MONITOR
--- NOTE | 2019-10-18 19:10 | NUR ---
ENDORSED TO DECK ENGINEER RN, JAILYN, FOR CONTINUITY OF CARE
[2019-10-18 20:00] VITALS: BP 117/89
--- NOTE | 2019-10-18 23:22 | NUR ---
ADMINISTERED 2100 MEDICATION TO PATIENT. PATIENT TOLERATED WELL. ASSISTED SPACE SYSTEMS OPERATIONS SUPERINTENDENT WITH BED CHANGE AND REPOSITIONING. ALL MONITORS ATTACHED. NO DISTRESS NOTED. WILL CONTINUE TO MONITORT
[2019-10-19] VITALS: BP 113/67
--- NOTE | 2019-10-19 01:30 | NUR ---
ROUNDING PATIENT RESTING. NO SIGNS OF DISTRESS NOTED. RESPIRATION EVEN AND UNLABORED ON RA. WILL CONTINUE TO MONITOR
--- NOTE | 2019-10-19 02:30 | NUR ---
ROUNDING, PATIENT RESTING NO SIGNS OF DISTRESS NOTED. ALL MONITORS ATTACHED AND SAFETY MEASURES IN PLACE. WILL CONTINUE TO MONITOR
--- NOTE | 2019-10-19 03:35 | NUR ---
ROUNDING, OBTAINED 0400 VITALS. PATIENT IN STABLE CONDITION. ALL MONITORS ATTACHED. WILL CONTINUE TO MONITOR
[2019-10-19 04:00] VITALS: BP 105/72
--- NOTE | 2019-10-19 04:22 | NUR ---
ASSISTED SEAM CLOSER WITH AM BED CHANGE. PATIENT TOLERATED WELL NO SIGNS OF DISTRESS NOTED. RESPIRATIONS EVEN AND UNLABORED ON RA. ALL MONITORS ATTACHED WILL CONTINUE TO MONITOR
--- NOTE | 2019-10-19 05:18 | NUR ---
PATIENT REMOVED SPO2 MONITOR. I OBTAINED A NEW ONE AND REPLACED IT. SPO2 AT 97% ON RA. PATIENT AWAKE IN BED NO SIGNS OF DISTRESS NOTED. WILL CONTINUE TO MONITOR
[2019-10-19 06:42] LABS: HEMOGLOBIN 15.7 g/dL (12.0-18.0); MEAN CORPUSCULAR HEMOGLOBIN 30 pg (27-31); MEAN CORPUSCULAR HGB CONC 34 g/dL (33-37); MEAN CORPUSCULAR VOLUME 89.3 fL (80-94); MONOCYTES # (AUTO) 0.5 K/uL (0.8-1.0); MONOCYTES % (AUTO) 14.6 % (1.7-9.3); WHITE BLOOD COUNT (AUTO) 3.3 K/uL (4.8-10.8)
[2019-10-19 06:58] LABS: HEMATOCRIT 46.5 % (36-52); LYMPHOCYTES % (AUTO) 25.6 % (20.5-51.1); NEUTROPHILS % (AUTO) 55.9 % (42.2-75.2); PLATELET COUNT (AUTO) 120 K/uL (140-450); RED BLOOD CELL COUNT(AUTO) 5.21 MIL/uL (4.20-6.10); RED CELL DISTRIBUTION WIDTH 12.5 % (11.6-13.7)
[2019-10-19 06:59] LABS: BASOPHILS % (AUTO) 1.2 % (0.0-2.0); EOSINOPHILS % (AUTO) 1.3 % (0.0-4.0)
[2019-10-19 07:00] LABS: LYMPHOCYTES # (AUTO) 0.8 K/uL (2.0-11.5); NEUTROPHILS # (AUTO) 1.8 K/uL (1.8-7.7)
--- NOTE | 2019-10-19 07:05 | NUR ---
RECEIVED REPORT FROM NIGHT NURSE FOR CONTINUITY OF CARE, PT IS STABLE, NO SIGNS OF DISTRESS NOTED, PT ASLEEP, RESPIRATIONS ARE EVEN AND UNLABORED ON ROOM AIR, PT HAS RIGHT AC 20G INFUSING NORMAL SALINE AT 60 ML/H, PT HAS CONTRACTURES OF UPPER EXTREMITIES AND LEGS, SKIN INTACT, BED IN LOW POSITION, SAFETY MEASURES IN PLACE, WILL INTRODUCE SELF, AND UPDATE WHITEBOARD, CALL LIGHT WITHIN REACH.
--- NOTE | 2019-10-19 07:06 | NUR ---
ENDORSED PATIENT TO DAYSHIFT NURSE FOR CONTINUITY OF CARE. PATIENT IN STABLE CONDITION
[2019-10-19] MEDS ORDERED: ALBUTEROL HFA MDI 90 MCG/ACTUATION 8 GM INH PRN (07:45)
[2019-10-19 08:00] VITALS: BP 109/62
[2019-10-19 08:04] LABS: ANION GAP 19.6 (8-16); CARBON DIOXIDE 23.5 mmol/L (21-32); POTASSIUM 4.1 mmol/L (3.5-5.1)
[2019-10-19 08:05] LABS: CREATININE 0.7 mg/dL (0.6-1.3)
[2019-10-19] MEDS: POLYETHYLENE GLYCOL 17 GM/PKT PO SCH ×2 (08:35→16:40)
[2019-10-19] MEDS: LACTULOSE 20 GM/30 ML UDC PO SCH ×2 (08:35→21:00)
[2019-10-19] MEDS: DEXAMETHASONE 4 MG TAB PO SCH (08:36)
[2019-10-19] MEDS: ASCORBIC ACID 500 MG TAB PO SCH (08:37)
[2019-10-19] MEDS: BISACODYL 10 MG SUPP RC SCH (08:38)
[2019-10-19] MEDS: ZINC SULF 220 MG CAP PO SCH (08:38)
--- NOTE | 2019-10-19 08:52 | NUR ---
ADMINISTERED SCHEDULED MEDICATION, MEDICATION EDUCATION GIVEN, PT TOLERATED MEDICATION, PT IS STABLE, NO SIGNS OF DISTRESS NOTED, RESPIRATIONS ARE EVEN AND UNLABORED ON ROOM AIR, CALL LIGHT WITHIN REACH.
[2019-10-19] MEDS: METOCLOPRAMIDE 10 MG TAB PO SCH ×2 (11:35→16:39)
[2019-10-19] MEDS: NACL 0.9% 1,000 ML IV SCH ×2 (11:41→22:04)
--- NOTE | 2019-10-19 11:41 | NUR ---
ADMINISTERED SCHEDULED MEDICATION, MEDICATION EDUCATION GIVEN, PT TOLERATED WELL, PT IS STABLE, NO SIGNS OF DISTRESS NOTED, CALL LIGHT WITHIN REACH.
[2019-10-19 12:00] VITALS: BP 111/71
--- NOTE | 2019-10-19 13:20 | NUR ---
PT IS ASLEEP IN BED, NO SIGNS OF DISTRESS NOTED, RESPIRATIONS ARE EVEN AND UNLABORED ON ROOM AIR, CALL LIGHT WITHIN REACH.
--- NOTE | 2019-10-19 15:32 | NUR ---
ADMINISTERED SCHEDULED MEDICATION, MEDICATION GIVEN, PT APHASIC, PT TOLERATED WELL, PT IS STABLE, NO SIGNS OF DISTRESS NOTED, CALL LIGHT WITHIN REACH.
[2019-10-19 16:00] VITALS: BP 106/68
--- NOTE | 2019-10-19 16:48 | NUR ---
ADMINISTERED SCHEDULED MEDICATION, MEDICATION EDUCATION GIVEN, PT TOLERATED MEDICATION WELL, PT IS STABLE, NO SIGNS OF DISTRESS NOTED, RESPIRATIONS ARE EVEN AND UNLABORED ON ROOM AIR, CALL LIGHT WITHIN REACH.
--- NOTE | 2019-10-19 19:10 | NUR ---
RECEIVED PT . AWAKE , RESPONDING BY EYE OPENING WHEN CALLING HIS NAME , W/ TROMMEL TENDER SHUNT - ON S2 PRECAUTION , NID - RA - O2 SAT WNL . IV SITE INTACT AND PATENT . FALL RISK - BED ALARM ON , LOW KARLENE SCALE - O Addendum: 10/20/19 at 0122 by Mariella Davis RN THE WORD OF LOW KARLENE SCALE O ON NURSES'S NOTE IS TYPHOGRAPHICALLY ERROR INSTEAD OF LOW KARLENE SCALE .- MNURLR Addendum: 10/20/19 at 0123 by Mariella Davis RN SAFETY MEASURES IN PLACE . PLAN OF CARE DISCUSSED BUT POOR UNDERSTANDING DUE TO MENTAL STATUS . PT IS APHASIC AND W/ HX OF CEREBRAL PALSY . WILL CONT. TO MONITOR - NIYA
--- NOTE | 2019-10-19 19:10 | NUR ---
GAVE REPORT TO NIGHT NURSE FOR CONTINUITY OF CARE, PT IS STABLE
[2019-10-19 20:00] VITALS: BP 112/65
--- NOTE | 2019-10-19 22:00 | NUR ---
MADE ROUNDS , NO S/SX OF ACUTE DISTRESS NOTED AT THIS TIME - O2 SAT WNL - WILL CONT. TO MONITOR.
--- NOTE | 2019-10-19 23:48 | NUR ---
DR CRUM DID ROUND - D/C ROCEPHIN HE ORDERED . LOVENOX 40MG/SQ DAILY HE ORDERED - HE SAID IT'S OK IF THE LOVENOX HUA.- INFORM DR SAL ABOUT DR CRUM'S ORDERS - DR SAL PUT THE ORDRES - INFORM CHARGE NURSE.
[2019-10-20] VITALS: BP 114/60
--- NOTE | 2019-10-20 | NUR ---
MADE ROUNDS . NO S/SX OF ACUTE DISTRESS NOTED AT THIS TIME . O2 SAT WNL . WILL CONT. TO MONITOR.
--- NOTE | 2019-10-20 02:30 | NUR ---
SLEEPING - CHEST RISE AND FALL EQUALLY - O2 SAT WNL.
[2019-10-20 04:00] VITALS: BP 114/62
--- NOTE | 2019-10-20 04:00 | NUR ---
MADE ROUNDS. NO S/SX OF ACUTE DISTRESS NOTED - O2 SAT WNL.
--- NOTE | 2019-10-20 06:00 | NUR ---
MADE ROUNDS , NO S/SX OF ACUTE DISTRESS NOTED AT THIS TIME. -O2 SAT WNL.
--- NOTE | 2019-10-20 07:11 | NUR ---
ENDORSED TO AM SHIFT - PT. - STABLE.
--- NOTE | 2019-10-20 07:16 | NUR ---
RECEIVED BEDSIDE REPORT FROM NIGHTSHIFT NURSE. PT RESTING IN BED. FLACC 0. RESPIRATIONS EVEN AND UNLABORED WITH NO SOB OR RESPIRATORY DISTRESS. SKIN WARM AND DRY TO TOUCH RAC 20G IS CLEAN, DRY, AND INTACT. SAFETY MEASURES IN PLACE. WILL CONTINUE TO MONITOR
[2019-10-20 07:23] LABS: BASOPHILS % (AUTO) 0.7 % (0.0-2.0); EOSINOPHILS % (AUTO) 1.1 % (0.0-4.0); HEMATOCRIT 46.7 % (36-52); LYMPHOCYTES # (AUTO) 1.4 K/uL (2.0-11.5); MEAN CORPUSCULAR HEMOGLOBIN 30 pg (27-31); MEAN CORPUSCULAR HGB CONC 34 g/dL (33-37); MEAN CORPUSCULAR VOLUME 88.6 fL (80-94); MONOCYTES # (AUTO) 0.5 K/uL (0.8-1.0); NEUTROPHILS # (AUTO) 1.2 K/uL (1.8-7.7); PLATELET COUNT (AUTO) 135 K/uL (140-450); RED BLOOD CELL COUNT(AUTO) 5.27 MIL/uL (4.20-6.10); RED CELL DISTRIBUTION WIDTH 12.5 % (11.6-13.7); WHITE BLOOD COUNT (AUTO) 3.1 K/uL (4.8-10.8)
[2019-10-20 07:54] LABS: ANION GAP 16.3 (8-16); CARBON DIOXIDE 22.7 mmol/L (21-32); CREATININE 0.6 mg/dL (0.6-1.3)
[2019-10-20 08:00] VITALS: BP 112/78
[2019-10-20] MEDS: ENOXAPARIN 40 MG/0.4 ML SYR SUBQ SCH (08:15)
[2019-10-20] MEDS: POLYETHYLENE GLYCOL 17 GM/PKT PO SCH ×2 (08:16→16:14)
[2019-10-20] MEDS: METOCLOPRAMIDE 10 MG TAB PO SCH ×3 (08:16→16:13)
[2019-10-20] MEDS: DEXAMETHASONE 4 MG TAB PO SCH (08:17)
[2019-10-20] MEDS: LACTULOSE 20 GM/30 ML UDC PO SCH ×2 (08:17→23:26)
[2019-10-20] MEDS: BISACODYL 10 MG SUPP RC SCH (08:18)
[2019-10-20] MEDS: ASCORBIC ACID 500 MG TAB PO SCH (08:18)
[2019-10-20] MEDS: ZINC SULF 220 MG CAP PO SCH (08:19)
--- NOTE | 2019-10-20 08:42 | NUR ---
ADMINISTERED SCHED MED PRESCRIBED PER MD ORDER. PT TOLERATED WELL. MEDICATION EDUCATION PERFORMED. PT APHASIC AND UNABLE TO RETURN DEMONSTRATION. SAFETY MEASURES IN PLACE. WILL CONTINUE TO MONITOR
[2019-10-20] MEDS: NACL 0.9% 1,000 ML IV SCH ×2 (09:21→21:06)
--- NOTE | 2019-10-20 10:15 | NUR ---
HOURLY ROUNDING. PT RESTING IN BED. FLACC 0. RESPIRATIONS EVEN AND UNLABORED WITH NO SOB OR RESPIRATORY DISTRESS. SKIN WARM AND DRY TO TOUCH. SAFETY MEASURES IN PLACE. WILL CONTINUE TO MONITOR
[2019-10-20 11:04] LABS: LYMPHOCYTES % (AUTO) 43.9 % (20.5-51.1); MONOCYTES % (AUTO) 16.6 % (1.7-9.3); NEUTROPHILS % (AUTO) 37.7 % (42.2-75.2)
[2019-10-20 12:00] VITALS: BP 124/76
[2019-10-20 16:00] VITALS: BP 117/71
--- NOTE | 2019-10-20 19:27 | NUR ---
ENDORSED AT BEDSIDE TO NIGHTSHIFT NURSE FOR CONTINUITY OF CARE. PT IS STABLE
--- NOTE | 2019-10-20 19:28 | NUR ---
RECEIVED REPORT FROM DAY SHIFT NURSE FOR CONTINUITY OF CARE. PT IS AXO X1; APHASIC. COVID POSITIVE. RESPIRATIONS ARE EVEN AND UNLABORED, BREATHING TO RA. SKIN COLOR APPROPRIATE FOR ETHNICITY. R FA 20G IV IS PATENT AND INTACT, AND RUNNING ORDERED. PUREED DIET. REVIEWED POC WITH PT. DROPLET, FALL, SEIZURE PRECAUTIONS. SAFETY MEASURES IN PLACE; CALL LIGHT WITHIN REACH, BED IN LOW POSITION. WILL CONTINUE TO MONITOR.
[2019-10-20 20:00] VITALS: BP 113/81
[2019-10-21] VITALS: BP 129/79
--- NOTE | 2019-10-21 00:10 | NUR ---
ORDERED CEPHULAC GIVEN. PT TOLERATED PO MED WELL. IVF RUNNING ORDERED. NO DISTRESS NOTED. TELE MONITOR ATTACHED. SAFETY MEASURES IN PLACE WILL CONTINUE TO MONITOR.
--- NOTE | 2019-10-21 00:14 | NUR ---
VITAL SIGNS STABLE. PT IS LYING IN BED AWAKE. IV FLUIDS RUNNING ORDERED. TELE MONITOR ATTACHED. SAFETY MEASURES IN PLACE. NO DISTRESS NOTED. WILL CONTINUE TO MONITOR.
[2019-10-21 04:00] VITALS: BP 112/85
--- NOTE | 2019-10-21 04:02 | NUR ---
PT'S VITAL SIGNS TAKEN; VITAL SIGNS STABLE. PT IS LYING IN BED AWAKE. IV FLUIDS RUNNING ORDERED. TELE MONITOR ATTACHED. SAFETY MEASURES IN PLACE. NO DISTRESS NOTED. WILL CONTINUE TO MONITOR.
--- NOTE | 2019-10-21 06:11 | NUR ---
RECEIVED A CALL FROM LAB, REPORTING BLOOD CULTURE RESULT TAKEN ON 10/16; POSITIVE RESULT FOR GRAM POSITIVE COCCI CLUSTERS.
--- NOTE | 2019-10-21 07:19 | NUR ---
ENDORSED TO DAY SHIFT NURSE, FOR CONTINUITY OF CARE. PT IS IN STABLE CONDITION.
--- NOTE | 2019-10-21 07:20 | NUR ---
RECEIVED BEDSIDE REPORT FROM NIGHTSHIFT NURSE. PT RESTING IN BED. FLACC 0. RESPIRATIONS EVEN AND UNLABORED WITH NO SOB OR RESPIRATORY DISTRESS. SKIN WARM AND DRY TO TOUCH. IV SITE IN RFA 20G IS CLEAN, DRY, AND INTACT. SAFETY MEASURES IN PLACE. WILL CONTINUE TO MONITOR
[2019-10-21 07:22] LABS: BASOPHILS % (AUTO) 0.3 % (0.0-2.0); EOSINOPHILS % (AUTO) 0.2 % (0.0-4.0); HEMATOCRIT 46.6 % (36-52); HEMOGLOBIN 15.8 g/dL (12.0-18.0); LYMPHOCYTES # (AUTO) 1.7 K/uL (2.0-11.5); LYMPHOCYTES % (AUTO) 32.5 % (20.5-51.1); MEAN CORPUSCULAR HEMOGLOBIN 30 pg (27-31); MEAN CORPUSCULAR HGB CONC 34 g/dL (33-37); MONOCYTES # (AUTO) 0.7 K/uL (0.8-1.0); MONOCYTES % (AUTO) 13.7 % (1.7-9.3); NEUTROPHILS # (AUTO) 2.7 K/uL (1.8-7.7); NEUTROPHILS % (AUTO) 53.3 % (42.2-75.2); PLATELET COUNT (AUTO) 148 K/uL (140-450); RED BLOOD CELL COUNT(AUTO) 5.23 MIL/uL (4.20-6.10); RED CELL DISTRIBUTION WIDTH 12.5 % (11.6-13.7); WHITE BLOOD COUNT (AUTO) 5.1 K/uL (4.8-10.8)
[2019-10-21 07:30] LABS: ANION GAP 15.8 (8-16); CARBON DIOXIDE 24.4 mmol/L (21-32); CREATININE 0.7 mg/dL (0.6-1.3); POTASSIUM 4.2 mmol/L (3.5-5.1)
[2019-10-21] MEDS: METOCLOPRAMIDE 10 MG TAB PO SCH (07:30)
[2019-10-21 08:00] VITALS: BP 111/76
[2019-10-21] MEDS: POLYETHYLENE GLYCOL 17 GM/PKT PO SCH (08:00)
[2019-10-21] MEDS: NACL 0.9% 1,000 ML IV SCH (08:13)
[2019-10-21] MEDS ORDERED: cefTRIAXone 2,000 MG in DEXTROSE 5% 100 ML IV SCH (09:00)
[2019-10-21] MEDS: BISACODYL 10 MG SUPP RC SCH (09:00)
[2019-10-21] MEDS: DEXAMETHASONE 4 MG TAB PO SCH (09:43)
[2019-10-21] MEDS: LACTULOSE 20 GM/30 ML UDC PO SCH (09:43)
[2019-10-21] MEDS: ASCORBIC ACID 500 MG TAB PO SCH (09:44)
[2019-10-21] MEDS: ZINC SULF 220 MG CAP PO SCH (09:44)
[2019-10-21] MEDS: ENOXAPARIN 40 MG/0.4 ML SYR SUBQ SCH (09:50)
--- NOTE | 2019-10-21 10:09 | NUR ---
ADMINISTERED SCHED MED PRESCRIBED PER MD ORDER. PT TOLERATED WELL. MEDICATION EDUCATION PERFORMED. PT APHASIC AND UNABLE TO VERBALIZE UNDERSTANDING. SAFETY MEASURES IN PLACE. WILL CONTINUE TO MONITOR
[2019-10-21 12:00] VITALS: BP 116/78
--- NOTE | 2019-10-21 13:30 | NUR ---
PT TRANSPORT IS HERE TO TAKE PATIENT BACK TO HIS BOARD AND CARE. REPORT GIVEN TO CAREGIVER PT RESTING IN BED. FLACC 0. ID BAND AND NTACT IV CANNULA REMOVED. 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 PT CHANGED INTO ORANGE GOWN. GATHERED ALL OF PT BELONGINGS. PT IS UP TO DATE ON HIS VACCINATIONS. PT GIVEN MASK TO WEAR. PT IS STABLE TO GO HOME TO HIS BOARD AND CARE
--- NOTE | 2019-10-21 13:35 | NUR ---
10/21/19 RD FOLLOW UP COMPLETED PLEASE REFER TO NUTRITION ASSESSMENT UNDER CARE ACTIVITY FOR ESTIMATED NUTRITIONAL NEEDS. 1. CONTINUE PUREE DIET TOLERATED 2. CONTINUE ENSURE TID 3. RD TO FOLLOW-UP 3-5 DAYS, MODERATE RISK RONNY SUAREZ RD
[2019-10-21] MEDS ORDERED: CEPH250C16 PO (17:05)
== END 2019-10-21 13:35 | disposition home or self-care (01) | DRG 137 ==
LOC: EEVIPCON 11:39 → MED 11:39 → EEVIPCON 14:47 → MTU 14:47
PROVIDERS: ADMIT General Practice; ATTEND General Practice
DX: U07.1 COVID-19 (principal); E83.51 Hypocalcemia; G80.9 Cerebral palsy, unspecified; D72.819 Decreased white blood cell count, unspecified; K56.41 Fecal impaction; G40.909 Epilepsy, unspecified, not intractable, without status epilepticus; E78.5 Hyperlipidemia, unspecified; Z98.2 Presence of cerebrospinal fluid drainage device; Z79.899 Other long term (current) drug therapy
CPT/HCPCS: 36415; 71045; 80048; 80053; 80305; 81003; 82150; 83036; 83615; 83690; 83735; 83880; 84100; 84436; 84439; 84443; 84479; 84484; 85025; 85379; 85610; 85651; 85730; 86140; 87040; 87081; 87086; 87804; 93005; 96374; 99291; J0696; J1650; J7030; J7060; J8597; Q0092; U0003-CS

== ENCOUNTER 2023-12-27 10:00 | Emergency (ER) | payer MEDICAID, OTHER ==
[~2023-12-27] VITALS: Ht 170.2 cm; Wt 63.5 kg
[~2023-12-27 10:00] MED LIST changes: +BACI1OIN20 TP; +CEPH250C16 PO; +LACT-191 PO; -LACT10SO11 PO; +[UNRECOGNIZED DRUG - CODE] PO
[2023-12-27 10:15] VITALS: BP 134/83; PULSE 78; RESP 15; TEMP 98.4; O2SAT 100
[2023-12-27 10:55] LABS: BASOPHILS % (AUTO) 0.5 % (0.0-2.0); EOSINOPHILS # (AUTO) 0.2 K/uL (0-0.4); EOSINOPHILS % (AUTO) 3.9 % (0.0-4.0); HEMATOCRIT 38.5 % (36-52); HEMOGLOBIN 13.3 g/dL (12.0-18.0); LYMPHOCYTES # (AUTO) 1.9 K/uL (2.0-11.5); LYMPHOCYTES % (AUTO) 29.8 % (20.5-51.1); MEAN CORPUSCULAR HEMOGLOBIN 31 pg (27-31); MEAN CORPUSCULAR HGB CONC 34 g/dL (33-37); MEAN CORPUSCULAR VOLUME 89.5 fL (80-94); MONOCYTES # (AUTO) 0.4 K/uL (0.8-1.0); MONOCYTES % (AUTO) 6.5 % (1.7-9.3); NEUTROPHILS # (AUTO) 3.7 K/uL (1.8-7.7); NEUTROPHILS % (AUTO) 59.3 % (42.2-75.2); PLATELET COUNT (AUTO) 305 K/uL (140-450); RED CELL DISTRIBUTION WIDTH 12.9 % (11.6-13.7); WHITE BLOOD COUNT (AUTO) 6.2 K/uL (4.8-10.8)
[2023-12-27 11:49] LABS: APPEARANCE,URINE CLEAR (CLEAR); BILIRUBIN,URINE NEGATIVE (NEGATIVE); BLOOD, URINE 3+ (NEGATIVE); COLOR,URINE YELLOW (YELLOW); LEUKOCYTE ESTERASE ,URINE TRACE (NEGATIVE); NITRITE, URINE NEGATIVE (NEGATIVE); PH,URINE 8.5 (5.0-9.0); PROTEIN,URINE NEGATIVE (NEGATIVE); UGLUCOSE NEGATIVE (NEGATIVE); UROBILINOGEN,URINE 0.2 EU/dL (0.2 - 1)
[2023-12-27 12:05] LABS: BACTERIA,URINE 1+ /HPF (None Seen); MUCUS,URINE 1+ /LPF (None Seen); RBC,URINE 20-50 /HPF (0-5); SQUAMOUS EPITHELIAL CELL,UR 0-3 (FEW) /LPF (0-3 (FEW))
[2023-12-27 13:55] LABS: ALBUMIN 3.4 g/dL (3.4-5.0); ANION GAP 15.9 (8-16); CALCIUM 9.1 mg/dL (8.5-10.1); CARBON DIOXIDE 24.9 mmol/L (21-32); CREATININE 0.7 mg/dL (0.6-1.3); POTASSIUM 3.8 mmol/L (3.5-5.1); TOTAL BILIRUBIN 0.3 mg/dL (0.0-1.0); TOTAL PROTEIN, SERUM 7.4 g/dL (6.4-8.2)
[2023-12-27 18:34] VITALS: BP 118/77; PULSE 86; RESP 19; TEMP 98.1; O2SAT 99
== END 2023-12-27 18:09 | disposition home or self-care (01) ==
LOC: MED 10:00
DX: K59.00 Constipation, unspecified (principal); R11.10 Vomiting, unspecified; R10.9 Unspecified abdominal pain; Z86.69 Personal history of other diseases of the nervous system and sense organs; Z79.899 Other long term (current) drug therapy
CPT/HCPCS: 36415; 74177; 80053; 81001; 83690; 85025; 87086; 99285; Q9967